=== PATIENT | female | born 1960 | race Hispanic/Latino ===

== ENCOUNTER → 2024-08-11 | Outpatient (CLI) | payer OTHER, MEDICARE ==
[~2024-08-11] MED LIST: ASPI-1005 PO; CEPH500C2 PO; EMPA10TA PO; FAMO40TA7 PO; GABA300C PO; IOHEXOL 350 MG/ML 100ML INFUS..BTL IV ONE; ROSU20TA98 PO; SERT-439 PO; VALS40TA11 PO; metoPROLOL tartRATE 1 MG/ML 5ML VIAL IV ONE
--- NOTE | 2024-08-11 10:56 | HMCIMG ---
CT CARDIAC ANGIO W/CONT. CCTA HISTORY: Dyspnea COMPARISON: None TECHNIQUE: Multiple sequential axial images of the chest were obtained along with the CT angiogram of the chest study. Patient was given 100 cc of Omnipaque through intravenous route. FINDINGS: There is no evidence of pulmonary nodule or parenchymal disease. There is left pleural effusion with compressive atelectasis. There is no evidence of pneumothorax. There are normal size mediastinal and hilar lymph nodes. The heart is not enlarged. Degenerative changes of the thoracolumbar spine are present. IMPRESSION: 1. Left pleural effusion with compressive atelectasis. Please see CT angiogram report of coronary arteries.
--- NOTE | 2024-08-12 11:31 | CARDIOLOGY ---
RAD REPORT: [facility] CT ANGIO RADIOLOGY REPORT: CORONARY CT ANGIOGRAPHY DATE: Aug 12, 2024 QUALITY: Excellent CLINICAL HISTORY AND INDICATION: [ coronary artery bypass graft patency ] TECHNIQUE: After obtaining a preliminary recoater image, contrast imaging performed on an [employer] [id number] scanner. A dedicated, limited window, coronary imaging protocol was used, with single breath-hold, retrospective ECG gating, and automated arrhythmia rejection. 100 cc of low osmolar contrast agent: Omnipaque 350 was delivered via a 18-gauge IV catheter in the right antecubital fossa, using a power injector and followed by 60 cc of normal saline bolus as a chaser. Collimated images were reformatted at 0.5 mm intervals, and sent to an offline independent workstation for interpretation, using 3D anatomic reconstructions: Curved multiplanar reconstructions, maximum intensity projections, and multiplan ar imaging. 5 mg IV metoprolol was administered prior to scanning. 0.8 mg SL nitroglycerin was given. CORONARY ARTERY DESCRIPTIONS: The coronary arteries arise in normal position. Left main coronary artery: Normal caliber vessel that bifurcates into the LAD and LCx. No stenosis. No ramus is visualized. Left anterior descending coronary artery: Normal caliber vessel and gives rise to diagonal and septal branches. [employer]ENT mid LAD. [employer]ENT of proximal D1. Left circumflex coronary artery: Normal caliber, nondominant and gives rise to a large OM branch. Severe proximal LCx stenosis. Right coronary artery: Large, dominant vessel giving rise to the PL and PDA branches. Diffusely diseased RCA. Severe proximal RCA stenosis. CORONARY ARTERY BYPASS GRAFT DESCRIPTIONS: Patent [place] to LAD. Patent SVG to OM. Patent SVG to PDA. Occluded SVG to Ramus. No ramus is visualized, likely [employer]ENT. Thoracic Aorta: Normal diameter. Tamra Dias MD Cardiovascular Disease [facility] TAMRA DIAS MD Aug 12, 2024 11:31
== END | disposition home or self-care (01) ==
LOC: RAH 07:44
PROVIDERS: ATTEND Internal Medicine Cardiovascular Disease
DX: I25.10 Atherosclerotic heart disease of native coronary artery without angina pectoris (principal); J90 Pleural effusion, not elsewhere classified; J98.11 Atelectasis; M47.815 Spondylosis without myelopathy or radiculopathy, thoracolumbar region; R06.00 Dyspnea, unspecified; Z95.1 Presence of aortocoronary bypass graft
CPT/HCPCS: 75574; J3490; Q9967